=== PATIENT | female | born 1940 | race American Indian/Alaskan Native ===

== ENCOUNTER 2016-10-31 13:09 | Inpatient (IN) | payer MEDICARE, MEDICAID ==
[~2016-10-31] VITALS: Ht 152.4 cm; Wt 78.7 kg
[~2016-10-31 13:09] MED LIST: CALC-126 PO; FURO80TA3 PO; GABA300C10 PO; INSU100C SQ; INSU100V8 SQ; ISOS30TA19 PO; LACT1CAP4 PO; LEVO75TA PO; PANT40TA5 PO; RIVA20TA PO; ROSU20TA PO; SPIR25TA3 PO; multivit; multivitamin PO
[2016-10-31 13:54] VITALS: BP 111/71
[2016-10-31] MEDS ORDERED: PLEASE ENTER HEIGHT AND WEIGHT MC SCH (15:00)
[2016-10-31] MEDS ORDERED: DIPHENHYDRAMINE 25 MG CAPSULE PO PRN ×2 (16:00)
[2016-10-31] MEDS: FUROSEMIDE 40 MG/4 ML IV SCH (16:50)
[2016-10-31] MEDS: METOLAZONE 5 MG TABLET PO SCH (16:50)
[2016-10-31] MEDS: CARVEDILOL 3.125 MG TABLET PO SCH (16:51)
[2016-10-31] MEDS: INSULIN ASPART 100 UNITS/ML, PEN SQ-INSULIN SCH (16:51)
[2016-10-31 20:35] VITALS: BP 93/59
[2016-10-31] MEDS: POTASSIUM CHLORIDE 10 MEQ TABLET.ER PO SCH (20:36)
[2016-10-31] MEDS: GABAPENTIN 300 MG CAPSULE PO SCH (20:36)
[2016-10-31] MEDS: SODIUM CHLORIDE FLUSH 10ML SYR IVF SCH (23:53)
[2016-11-01 02:30] VITALS: BP 98/60
[2016-11-01] MEDS: LEVOTHYROXINE 125 MCG TABLET PO SCH (06:13)
[2016-11-01] MEDS: CARVEDILOL 3.125 MG TABLET PO SCH ×2 (06:13→17:29)
[2016-11-01 08:12] VITALS: BP 100/64
[2016-11-01] MEDS: ATORVASTATIN 20 MG TABLET PO SCH (09:35)
[2016-11-01] MEDS: RIVAROXABAN 15 MG TABLET PO SCH (09:35)
[2016-11-01] MEDS: ISOSORBIDE MONONITRATE ER 30 MG TABLET PO SCH (09:35)
[2016-11-01] MEDS: METOLAZONE 5 MG TABLET PO SCH (09:35)
[2016-11-01] MEDS: GABAPENTIN 300 MG CAPSULE PO SCH ×2 (09:36→20:53)
[2016-11-01] MEDS: POTASSIUM CHLORIDE 10 MEQ TABLET.ER PO SCH ×2 (09:36→20:53)
[2016-11-01] MEDS: FUROSEMIDE 40 MG/4 ML IV SCH (09:36)
[2016-11-01] MEDS: PANTOPROZOLE 40MG TABLET PO SCH (09:36)
[2016-11-01] MEDS: LISINOPRIL 5 MG TABLET PO SCH (09:37)
[2016-11-01] MEDS: INSULIN ASPART 100 UNITS/ML, PEN SQ-INSULIN SCH ×3 (09:37→17:29)
[2016-11-01] MEDS: INSULIN DETEMIR 100 UNITS/ML, PEN SQ-INSULIN SCH (09:38)
[2016-11-01] MEDS: SODIUM CHLORIDE FLUSH 10ML SYR IVF SCH ×2 (09:40→20:53)
[2016-11-01 10:31] LABS: BLOOD UREA NITROGEN 58 mg/dL (7-18)
[2016-11-01 12:07] VITALS: BP 93/54
[2016-11-01] MEDS: HYDROcodone/APAP 5/325 TABLET PO PRN ×2 (12:09→22:18)
[2016-11-01 13:51] VITALS: BP 96/57
[2016-11-01 20:15] VITALS: BP 101/62
[2016-11-01] MEDS ORDERED: FUROSEMIDE 40 MG/4 ML IV SCH (21:00)
[2016-11-02 02:54] VITALS: BP 96/60
[2016-11-02 05:11] LABS: BLOOD UREA NITROGEN 59 mg/dL (7-18)
[2016-11-02] MEDS: CARVEDILOL 3.125 MG TABLET PO SCH ×2 (06:01→17:28)
[2016-11-02] MEDS: LEVOTHYROXINE 125 MCG TABLET PO SCH (06:02)
[2016-11-02 08:00] VITALS: BP 96/60
[2016-11-02] MEDS: INSULIN ASPART 100 UNITS/ML, PEN SQ-INSULIN SCH ×4 (09:20→22:17)
[2016-11-02] MEDS: POTASSIUM CHLORIDE 10 MEQ TABLET.ER PO SCH ×2 (09:21→22:17)
[2016-11-02] MEDS: GABAPENTIN 300 MG CAPSULE PO SCH ×2 (09:21→21:00)
[2016-11-02] MEDS: ATORVASTATIN 20 MG TABLET PO SCH (09:21)
[2016-11-02] MEDS: RIVAROXABAN 15 MG TABLET PO SCH (09:21)
[2016-11-02] MEDS: ISOSORBIDE MONONITRATE ER 30 MG TABLET PO SCH (09:22)
[2016-11-02] MEDS: PANTOPROZOLE 40MG TABLET PO SCH (09:22)
[2016-11-02] MEDS: LISINOPRIL 5 MG TABLET PO SCH (09:22)
[2016-11-02] MEDS: INSULIN DETEMIR 100 UNITS/ML, PEN SQ-INSULIN SCH (09:26)
[2016-11-02] MEDS: FUROSEMIDE 40 MG/4 ML IV SCH (09:27)
[2016-11-02] MEDS: METOLAZONE 5 MG TABLET PO SCH (09:27)
[2016-11-02] MEDS: SODIUM CHLORIDE FLUSH 10ML SYR IVF SCH ×2 (09:28→22:17)
[2016-11-02] MEDS ORDERED: INSULIN ASPART 100 UNITS/ML, PEN SQ-INSULIN ONE (14:00)
[2016-11-02] MEDS ORDERED: FUROSEMIDE 40 MG/4 ML IV SCH (15:00)
[2016-11-02 15:30] VITALS: BP 100/68
[2016-11-02 20:15] VITALS: BP 91/55
[2016-11-02 22:23] VITALS: BP 90/58
[2016-11-03 02:10] VITALS: BP 82/48
[2016-11-03 02:30] VITALS: BP 93/57
[2016-11-03] MEDS: LEVOTHYROXINE 125 MCG TABLET PO SCH (05:46)
[2016-11-03 06:23] LABS: BLOOD UREA NITROGEN 58 mg/dL (7-18)
[2016-11-03 07:50] VITALS: BP 104/69
[2016-11-03] MEDS: PANTOPROZOLE 40MG TABLET PO SCH (07:53)
[2016-11-03] MEDS: CARVEDILOL 3.125 MG TABLET PO SCH ×2 (07:53→17:45)
[2016-11-03] MEDS: GABAPENTIN 300 MG CAPSULE PO SCH ×2 (08:40→20:55)
[2016-11-03] MEDS: RIVAROXABAN 15 MG TABLET PO SCH (08:40)
[2016-11-03] MEDS: METOLAZONE 5 MG TABLET PO SCH (08:40)
[2016-11-03] MEDS: INSULIN ASPART 100 UNITS/ML, PEN SQ-INSULIN SCH ×4 (08:40→20:57)
[2016-11-03] MEDS: INSULIN DETEMIR 100 UNITS/ML, PEN SQ-INSULIN SCH (08:41)
[2016-11-03] MEDS: ATORVASTATIN 20 MG TABLET PO SCH (09:46)
[2016-11-03] MEDS: POTASSIUM CHLORIDE 10 MEQ TABLET.ER PO SCH ×2 (09:46→20:55)
[2016-11-03] MEDS: TORSEMIDE 20 MG TABLET PO SCH ×2 (09:46→17:44)
[2016-11-03] MEDS: SODIUM CHLORIDE FLUSH 10ML SYR IVF SCH ×2 (09:46→20:55)
[2016-11-03 13:04] VITALS: BP 98/65
[2016-11-03] MEDS: ISOSORBIDE MONONITRATE ER 30 MG TABLET PO SCH (13:06)
[2016-11-03] MEDS: LISINOPRIL 5 MG TABLET PO SCH (13:06)
[2016-11-03 19:04] VITALS: BP 89/46
[2016-11-03 20:45] VITALS: BP 100/63
[2016-11-04 03:20] VITALS: BP 95/62
[2016-11-04 06:20] VITALS: BP 101/64
[2016-11-04] MEDS: LEVOTHYROXINE 125 MCG TABLET PO SCH (06:29)
[2016-11-04] MEDS: CARVEDILOL 3.125 MG TABLET PO SCH ×2 (06:30→17:30)
[2016-11-04] MEDS: PANTOPROZOLE 40MG TABLET PO SCH (08:17)
[2016-11-04] MEDS: METOLAZONE 5 MG TABLET PO SCH (08:18)
[2016-11-04] MEDS: POTASSIUM CHLORIDE 10 MEQ TABLET.ER PO SCH ×2 (09:32→21:39)
[2016-11-04] MEDS: GABAPENTIN 300 MG CAPSULE PO SCH ×2 (09:32→21:39)
[2016-11-04] MEDS: TORSEMIDE 20 MG TABLET PO SCH ×2 (09:32→17:30)
[2016-11-04] MEDS: RIVAROXABAN 15 MG TABLET PO SCH (09:32)
[2016-11-04 09:33] LABS: BLOOD UREA NITROGEN 61 mg/dL (7-18)
[2016-11-04] MEDS: SODIUM CHLORIDE FLUSH 10ML SYR IVF SCH ×2 (09:33→21:39)
[2016-11-04] MEDS: INSULIN ASPART 100 UNITS/ML, PEN SQ-INSULIN SCH ×4 (09:33→21:39)
[2016-11-04] MEDS: INSULIN DETEMIR 100 UNITS/ML, PEN SQ-INSULIN SCH (09:33)
[2016-11-04] MEDS: LISINOPRIL 5 MG TABLET PO SCH (10:42)
[2016-11-04 10:43] VITALS: BP 107/62
[2016-11-04] MEDS: ISOSORBIDE MONONITRATE ER 30 MG TABLET PO SCH (10:43)
[2016-11-04 15:00] VITALS: BP 120/71
[2016-11-04 20:00] VITALS: BP 112/65
[2016-11-04] MEDS: ATORVASTATIN 20 MG TABLET PO SCH (21:39)
[2016-11-04] MEDS: HYDROcodone/APAP 5/325 TABLET PO PRN (23:23)
[2016-11-05 01:14] VITALS: BP 100/62
[2016-11-05] MEDS: LEVOTHYROXINE 125 MCG TABLET PO SCH (05:46)
[2016-11-05] MEDS: CARVEDILOL 3.125 MG TABLET PO SCH (05:46)
[2016-11-05 06:50] LABS: BLOOD UREA NITROGEN 67 mg/dL (7-18)
[2016-11-05] MEDS: INSULIN ASPART 100 UNITS/ML, PEN SQ-INSULIN SCH (07:00)
[2016-11-05] MEDS: METOLAZONE 5 MG TABLET PO SCH (07:20)
[2016-11-05] MEDS: PANTOPROZOLE 40MG TABLET PO SCH (07:20)
[2016-11-05 07:22] VITALS: BP 103/68
[2016-11-05] MEDS ORDERED: TORS20TA PO (08:05)
[2016-11-05] MEDS ORDERED: LEVO125T PO (08:05)
[2016-11-05] MEDS ORDERED: LISI5TAB7 PO (08:05)
[2016-11-05] MEDS ORDERED: RIVA15TA PO (08:05)
[2016-11-05] MEDS ORDERED: POTA10TA5 PO (08:05)
[2016-11-05] MEDS ORDERED: CARV3.1212 PO (08:05)
[2016-11-05] MEDS ORDERED: METO5TAB5 PO (08:05)
[2016-11-05] MEDS: POTASSIUM CHLORIDE 10 MEQ TABLET.ER PO SCH (08:21)
[2016-11-05] MEDS: LISINOPRIL 5 MG TABLET PO SCH (08:21)
[2016-11-05] MEDS: ATORVASTATIN 20 MG TABLET PO SCH (08:21)
[2016-11-05] MEDS: ISOSORBIDE MONONITRATE ER 30 MG TABLET PO SCH (08:21)
[2016-11-05] MEDS: TORSEMIDE 20 MG TABLET PO SCH (08:21)
[2016-11-05] MEDS: RIVAROXABAN 15 MG TABLET PO SCH (08:21)
[2016-11-05] MEDS: SODIUM CHLORIDE FLUSH 10ML SYR IVF SCH (08:21)
[2016-11-05] MEDS: GABAPENTIN 300 MG CAPSULE PO SCH (08:21)
[2016-11-05] MEDS: INSULIN DETEMIR 100 UNITS/ML, PEN SQ-INSULIN SCH (08:22)
== END 2016-11-05 10:54 | disposition home or self-care (01) | DRG 308 ==
LOC: 5SO 13:09
PROVIDERS: ADMIT Internal Medicine Cardiovascular Disease; ATTEND Internal Medicine Cardiovascular Disease
DX: I48.2 Chronic atrial fibrillation (principal); I50.43 Acute on chronic combined systolic (congestive) and diastolic (congestive) heart failure; D68.69 Other thrombophilia; I48.92 Unspecified atrial flutter; I25.5 Ischemic cardiomyopathy; Z95.810 Presence of automatic (implantable) cardiac defibrillator; E11.21 Type 2 diabetes mellitus with diabetic nephropathy; N18.9 Chronic kidney disease, unspecified; E11.22 Type 2 diabetes mellitus with diabetic chronic kidney disease; I25.10 Atherosclerotic heart disease of native coronary artery without angina pectoris; E11.40 Type 2 diabetes mellitus with diabetic neuropathy, unspecified; E11.610 Type 2 diabetes mellitus with diabetic neuropathic arthropathy; E11.621 Type 2 diabetes mellitus with foot ulcer; I27.2 Other secondary pulmonary hypertension; I34.0 Nonrheumatic mitral (valve) insufficiency; E11.51 Type 2 diabetes mellitus with diabetic peripheral angiopathy without gangrene; L97.519 Non-pressure chronic ulcer of other part of right foot with unspecified severity; Z80.3 Family history of malignant neoplasm of breast; Z82.3 Family history of stroke; Z83.3 Family history of diabetes mellitus; Z87.891 Personal history of nicotine dependence; Z95.1 Presence of aortocoronary bypass graft
CPT/HCPCS: 36415; 71010; 80048; 82962; 83036; 83880; 85025; C8929; J1815; J1940

== ENCOUNTER 2017-10-20 18:39 | Inpatient (IN) | payer MEDICARE, MEDICAID ==
[~2017-10-20] VITALS: Ht 152.4 cm; Wt 78.4 kg
[~2017-10-20 18:39] MED LIST changes: +CARV3.1212 PO; -ISOS30TA19 PO; +ISOS30TA21 PO; +LEVO125T PO; +LISI5TAB7 PO; +METO5TAB5 PO; +POTA10TA5 PO; +RIVA15TA PO; +TORS20TA PO
[2017-10-20] MEDS ORDERED: SODIUM CHLORIDE FLUSH 10ML SYR IVF ONE (19:00)
[2017-10-20 19:33] LABS: BASOPHILS # (AUTO) 0.04 x10^3/uL (0-0.1); BASOPHILS % (AUTO) 1 % (0-1); EOSINOPHILS # (AUTO) 0.03 x10^3/uL (0-0.4); EOSINOPHILS % (AUTO) 1 % (1-7); LYMPHOCYTES # (AUTO) 1.03 x10^3/uL (1-3.4); LYMPHOCYTES % (AUTO) 20 % (22-44); MD NO; MEAN CORPUSCULAR HEMOGLOBIN 31.6 pg (27.0-34.8); MEAN CORPUSCULAR HGB CONC 32.4 g/dL (32.4-35.8); MEAN CORPUSCULAR VOLUME 97.4 fL (80-100); MEAN PLATELET VOLUME 7.1 fL (7.4-10.4); MONOCYTES # (AUTO) 0.49 x10^3/uL (0.2-0.8); MONOCYTES % (AUTO) 9 % (2-9); NEUTROPHILS % (AUTO) 70 % (42-75); PLATELET COUNT 235 x10^3/uL (130-400); RED BLOOD COUNT 4.76 x10^6/uL (3.82-5.3); RED CELL DISTRIBUTION WIDTH 16.3 % (9.6-15.2)
[2017-10-20 19:45] LABS: ALANINE AMINOTRANSFERASE 12 U/L (12-78); ALBUMIN 1.7 g/dL (3.4-5.0); ANION GAP 6 mmol/L (5-15); CALCIUM 7.5 mg/dL (8.5-10.1); CHLORIDE 99 mmol/L (98-107); CREATININE 1.41 mg/dL (0.55-1.02)
[2017-10-20 19:50] LABS: ALKALINE PHOSPHATASE 72 U/L (45-117); BILIRUBIN,TOTAL 0.6 mg/dL (0.2-1.0); TOTAL PROTEIN 4.7 g/dL (6.4-8.2); TROPONIN I 0.036 ng/mL (0.000-0.045)
[2017-10-20] MEDS ORDERED: FUROSEMIDE 100 MG/10 ML IV ONE (20:00)
[2017-10-20] MEDS ORDERED: FURO80TA77 PO (20:20)
[2017-10-20] MEDS ORDERED: ESOM40CA PO (20:20)
[2017-10-20] MEDS ORDERED: IRON PO (20:20)
[2017-10-20] MEDS ORDERED: ISOSORBIDE MONONITRATE PO (20:20)
[2017-10-20] MEDS ORDERED: ROSU10TA PO (20:20)
[2017-10-20] MEDS ORDERED: LACTOBACILLUS CHEW TABLET PO SCH (21:30)
[2017-10-20] MEDS ORDERED: GABAPENTIN 300 MG CAPSULE PO SCH (21:30)
[2017-10-20] MEDS ORDERED: ATORVASTATIN 40 MG TABLET PO SCH (21:30)
[2017-10-20] MEDS ORDERED: ISOSORBIDE DINITRATE 30 MG TABLET PO SCH (21:30)
[2017-10-20] MEDS ORDERED: POLYETHYLENE GLYCOL 17 GM PACKET PO PRN (22:00)
[2017-10-20] MEDS ORDERED: BISACODYL 10 MG SUPP PR PRN (22:00)
[2017-10-20] MEDS ORDERED: ONDANSETRON 2MG/ML, 2ML IVPush PRN (22:00)
[2017-10-20 22:18] VITALS: BP 106/70
[2017-10-20] MEDS ORDERED: ISOSORBIDE MC SCH ×2 (22:30)
[2017-10-21 00:27] LABS: MICROSCOPIC NOT IND
[2017-10-21] MEDS ORDERED: ROSU10TA PO (00:27)
[2017-10-21] MEDS ORDERED: ESOM40SU PO (00:27)
[2017-10-21] MEDS ORDERED: ISOSORBIDE MONONITRATE PO (00:27)
[2017-10-21] MEDS ORDERED: GABA-826 PO (00:27)
[2017-10-21 00:31] LABS: CULTURE INDICATED? NO
[2017-10-21] MEDS: SODIUM CHLORIDE FLUSH 10ML SYR IVF SCH ×3 (01:41→22:07)
[2017-10-21] MEDS: GABAPENTIN 300 MG CAPSULE PO SCH ×3 (01:42→22:08)
[2017-10-21] MEDS: POTASSIUM CHLORIDE 20 MEQ TAB.ER.PRT PO SCH ×3 (01:42→17:02)
[2017-10-21] MEDS: INSULIN LISPRO 100 UNITS/ML, PEN SQ-INSULIN SCH ×5 (01:42→22:08)
[2017-10-21] MEDS: ATORVASTATIN 20 MG TABLET PO SCH ×2 (01:42→22:08)
[2017-10-21 03:10] VITALS: BP 114/72
[2017-10-21 05:18] LABS: BASOPHILS # (AUTO) 0.05 x10^3/uL (0-0.1); BASOPHILS % (AUTO) 1 % (0-1); EOSINOPHILS # (AUTO) 0.06 x10^3/uL (0-0.4); EOSINOPHILS % (AUTO) 1 % (1-7); LYMPHOCYTES # (AUTO) 1.11 x10^3/uL (1-3.4); LYMPHOCYTES % (AUTO) 20 % (22-44); MD NO; MEAN CORPUSCULAR HEMOGLOBIN 31.9 pg (27.0-34.8); MEAN CORPUSCULAR HGB CONC 32.9 g/dL (32.4-35.8); MEAN CORPUSCULAR VOLUME 97.1 fL (80-100); MEAN PLATELET VOLUME 7.2 fL (7.4-10.4); MONOCYTES # (AUTO) 0.47 x10^3/uL (0.2-0.8); MONOCYTES % (AUTO) 9 % (2-9); NEUTROPHILS # (AUTO) 3.86 x10^3/uL (1.8-6.8); NEUTROPHILS % (AUTO) 70 % (42-75); PLATELET COUNT 225 x10^3/uL (130-400); RED BLOOD COUNT 4.65 x10^6/uL (3.82-5.3); RED CELL DISTRIBUTION WIDTH 16.3 % (9.6-15.2)
[2017-10-21 05:27] LABS: CHLORIDE 101 mmol/L (98-107)
[2017-10-21 05:35] LABS: ALANINE AMINOTRANSFERASE 15 U/L (12-78); ALBUMIN 1.6 g/dL (3.4-5.0); ALKALINE PHOSPHATASE 71 U/L (45-117); ANION GAP 3 mmol/L (5-15); BILIRUBIN,TOTAL 0.6 mg/dL (0.2-1.0); CALCIUM 7.5 mg/dL (8.5-10.1); CREATININE 1.58 mg/dL (0.55-1.02); TOTAL PROTEIN 4.7 g/dL (6.4-8.2); TROPONIN I 0.038 ng/mL (0.000-0.045)
[2017-10-21] MEDS: CARVEDILOL 3.125 MG TABLET PO SCH ×2 (06:04→18:00)
[2017-10-21] MEDS: LEVOTHYROXINE 125 MCG TABLET PO SCH (06:04)
[2017-10-21] MEDS ORDERED: TORSEMIDE 20 MG TABLET PO SCH (07:30)
[2017-10-21] MEDS ORDERED: METOLAZONE 5 MG TABLET PO SCH (07:30)
[2017-10-21] MEDS: METOLAZONE 5 MG TABLET PO SCH (07:35)
[2017-10-21] MEDS: FUROSEMIDE 40 MG/4 ML IV SCH ×2 (08:07→16:55)
[2017-10-21 08:18] VITALS: BP 118/76
[2017-10-21] MEDS ORDERED: LISINOPRIL 5 MG TABLET PO SCH (09:00)
[2017-10-21] MEDS ORDERED: CALCIUM/VITAMIN D3 250-125 TABLET PO SCH (09:00)
[2017-10-21] MEDS: SENNA/DOCUSATE TABLET PO SCH (09:00)
[2017-10-21] MEDS ORDERED: PANTOPROZOLE 40MG TABLET PO SCH (09:00)
[2017-10-21] MEDS: ISOSORBIDE MONONITRATE ER 30 MG TABLET PO SCH (09:26)
[2017-10-21] MEDS: FERROUS SULFATE 325 MG TABLET PO SCH ×2 (09:26→22:08)
[2017-10-21] MEDS: MULTIVITAMINS/MINERALS TABLET PO SCH (09:27)
[2017-10-21] MEDS: RIVAROXABAN 15 MG TABLET PO SCH (09:28)
[2017-10-21] MEDS: PANTOPROZOLE 40MG TABLET PO SCH (09:28)
[2017-10-21] MEDS: INSULIN GLARGINE 100 UNITS/ML, PEN SQ-INSULIN SCH (10:12)
[2017-10-21 14:07] VITALS: BP 123/70
[2017-10-21 19:58] VITALS: BP 115/71
[2017-10-22 00:58] VITALS: BP 97/57
[2017-10-22 05:46] LABS: BASOPHILS # (AUTO) 0.02 x10^3/uL (0-0.1); BASOPHILS % (AUTO) 0 % (0-1); EOSINOPHILS % (AUTO) 2 % (1-7); LYMPHOCYTES # (AUTO) 0.87 x10^3/uL (1-3.4); LYMPHOCYTES % (AUTO) 16 % (22-44); MD NO; MEAN CORPUSCULAR HEMOGLOBIN 31.3 pg (27.0-34.8); MEAN CORPUSCULAR HGB CONC 32.4 g/dL (32.4-35.8); MEAN CORPUSCULAR VOLUME 96.6 fL (80-100); MONOCYTES # (AUTO) 0.38 x10^3/uL (0.2-0.8); MONOCYTES % (AUTO) 7 % (2-9); NEUTROPHILS # (AUTO) 4.15 x10^3/uL (1.8-6.8); NEUTROPHILS % (AUTO) 75 % (42-75); PLATELET COUNT 214 x10^3/uL (130-400); RED BLOOD COUNT 4.53 x10^6/uL (3.82-5.3); RED CELL DISTRIBUTION WIDTH 16.5 % (9.6-15.2)
[2017-10-22 05:53] LABS: ANION GAP 6 mmol/L (5-15); CALCIUM 7.8 mg/dL (8.5-10.1); CHLORIDE 102 mmol/L (98-107)
[2017-10-22 05:55] LABS: CREATININE 1.49 mg/dL (0.55-1.02)
[2017-10-22] MEDS: CARVEDILOL 3.125 MG TABLET PO SCH ×2 (06:06→16:59)
[2017-10-22] MEDS: LEVOTHYROXINE 125 MCG TABLET PO SCH (06:06)
[2017-10-22 06:39] VITALS: BP 106/66
[2017-10-22] MEDS: INSULIN LISPRO 100 UNITS/ML, PEN SQ-INSULIN SCH ×4 (07:00→20:19)
[2017-10-22] MEDS: PANTOPROZOLE 40MG TABLET PO SCH (08:02)
[2017-10-22] MEDS: RIVAROXABAN 15 MG TABLET PO SCH (08:02)
[2017-10-22] MEDS: ISOSORBIDE MONONITRATE ER 30 MG TABLET PO SCH (08:02)
[2017-10-22] MEDS: GABAPENTIN 300 MG CAPSULE PO SCH ×2 (08:02→20:17)
[2017-10-22] MEDS: POTASSIUM CHLORIDE 20 MEQ TAB.ER.PRT PO SCH ×2 (08:02→16:55)
[2017-10-22] MEDS: FERROUS SULFATE 325 MG TABLET PO SCH ×2 (08:02→20:17)
[2017-10-22] MEDS: METOLAZONE 5 MG TABLET PO SCH (08:02)
[2017-10-22] MEDS: MULTIVITAMINS/MINERALS TABLET PO SCH (08:02)
[2017-10-22] MEDS: SENNA/DOCUSATE TABLET PO SCH ×2 (08:03→12:05)
[2017-10-22] MEDS: SODIUM CHLORIDE FLUSH 10ML SYR IVF SCH ×2 (08:03→20:18)
[2017-10-22] MEDS: INSULIN GLARGINE 100 UNITS/ML, PEN SQ-INSULIN SCH (09:00)
[2017-10-22] MEDS: FUROSEMIDE 40 MG/4 ML IV SCH ×2 (09:00→16:55)
[2017-10-22] MEDS: SPIRONOLACTONE 25 MG TABLET PO SCH ×2 (12:04→20:17)
[2017-10-22 12:50] VITALS: BP 114/69
[2017-10-22 16:59] VITALS: BP 111/74
[2017-10-22 19:22] VITALS: BP 99/38
[2017-10-22] MEDS: ATORVASTATIN 20 MG TABLET PO SCH (20:17)
[2017-10-23 01:07] VITALS: BP 104/68
[2017-10-23 05:29] LABS: CHLORIDE 102 mmol/L (98-107)
[2017-10-23] MEDS: CARVEDILOL 3.125 MG TABLET PO SCH ×2 (05:37→17:29)
[2017-10-23] MEDS: LEVOTHYROXINE 125 MCG TABLET PO SCH (05:37)
[2017-10-23 05:40] LABS: ANION GAP 5 mmol/L (5-15); CALCIUM 7.2 mg/dL (8.5-10.1); CREATININE 1.26 mg/dL (0.55-1.02)
[2017-10-23 06:59] VITALS: BP 103/65
[2017-10-23] MEDS: INSULIN LISPRO 100 UNITS/ML, PEN SQ-INSULIN SCH ×4 (07:00→20:08)
[2017-10-23] MEDS: GABAPENTIN 300 MG CAPSULE PO SCH ×2 (08:55→20:08)
[2017-10-23] MEDS: INSULIN GLARGINE 100 UNITS/ML, PEN SQ-INSULIN SCH (08:55)
[2017-10-23] MEDS: POTASSIUM CHLORIDE 20 MEQ TAB.ER.PRT PO SCH ×2 (08:55→17:28)
[2017-10-23] MEDS: SPIRONOLACTONE 25 MG TABLET PO SCH ×2 (08:56→20:08)
[2017-10-23] MEDS: RIVAROXABAN 15 MG TABLET PO SCH (08:56)
[2017-10-23] MEDS: PANTOPROZOLE 40MG TABLET PO SCH (08:56)
[2017-10-23] MEDS: ISOSORBIDE MONONITRATE ER 30 MG TABLET PO SCH (08:56)
[2017-10-23] MEDS: FERROUS SULFATE 325 MG TABLET PO SCH ×2 (08:56→20:08)
[2017-10-23] MEDS: SENNA/DOCUSATE TABLET PO SCH (08:56)
[2017-10-23] MEDS: FUROSEMIDE 40 MG/4 ML IV SCH ×2 (08:56→17:29)
[2017-10-23] MEDS: SODIUM CHLORIDE FLUSH 10ML SYR IVF SCH ×2 (08:56→20:08)
[2017-10-23] MEDS: MULTIVITAMINS/MINERALS TABLET PO SCH (08:56)
[2017-10-23 12:41] VITALS: BP 118/77
[2017-10-23 16:28] LABS: HEMOGLOBIN A1C 7.3 % (4.2-6.3)
[2017-10-23 17:27] VITALS: BP 103/67
[2017-10-23 19:54] VITALS: BP 96/58
[2017-10-23] MEDS: ATORVASTATIN 20 MG TABLET PO SCH (20:07)
[2017-10-24 01:46] VITALS: BP 115/84
[2017-10-24 03:32] VITALS: BP 121/50
[2017-10-24 05:26] LABS: BASOPHILS # (AUTO) 0.03 x10^3/uL (0-0.1); BASOPHILS % (AUTO) 1 % (0-1); EOSINOPHILS # (AUTO) 0.09 x10^3/uL (0-0.4); EOSINOPHILS % (AUTO) 2 % (1-7); LYMPHOCYTES # (AUTO) 0.85 x10^3/uL (1-3.4); LYMPHOCYTES % (AUTO) 15 % (22-44); MD NO; MEAN CORPUSCULAR HEMOGLOBIN 31.1 pg (27.0-34.8); MEAN CORPUSCULAR VOLUME 97.2 fL (80-100); MEAN PLATELET VOLUME 6.9 fL (7.4-10.4); MONOCYTES # (AUTO) 0.42 x10^3/uL (0.2-0.8); MONOCYTES % (AUTO) 8 % (2-9); NEUTROPHILS # (AUTO) 4.15 x10^3/uL (1.8-6.8); NEUTROPHILS % (AUTO) 75 % (42-75); PLATELET COUNT 209 x10^3/uL (130-400); RED BLOOD COUNT 4.67 x10^6/uL (3.82-5.3); RED CELL DISTRIBUTION WIDTH 16.5 % (9.6-15.2)
[2017-10-24] MEDS: LEVOTHYROXINE 125 MCG TABLET PO SCH (05:32)
[2017-10-24] MEDS: CARVEDILOL 3.125 MG TABLET PO SCH ×2 (05:32→17:01)
[2017-10-24 05:34] LABS: CALCIUM 7.4 mg/dL (8.5-10.1); CHLORIDE 101 mmol/L (98-107)
[2017-10-24 05:37] LABS: ANION GAP 5 mmol/L (5-15); CREATININE 1.27 mg/dL (0.55-1.02)
[2017-10-24] MEDS: INSULIN LISPRO 100 UNITS/ML, PEN SQ-INSULIN SCH ×5 (07:00→20:58)
[2017-10-24 08:07] VITALS: BP 125/79
[2017-10-24] MEDS: POTASSIUM CHLORIDE 20 MEQ TAB.ER.PRT PO SCH ×2 (08:32→17:00)
[2017-10-24] MEDS: FUROSEMIDE 40 MG/4 ML IV SCH ×2 (08:32→17:00)
[2017-10-24] MEDS: SPIRONOLACTONE 25 MG TABLET PO SCH ×2 (08:32→20:57)
[2017-10-24] MEDS: RIVAROXABAN 15 MG TABLET PO SCH (08:32)
[2017-10-24] MEDS: GABAPENTIN 300 MG CAPSULE PO SCH ×2 (08:32→20:57)
[2017-10-24] MEDS: PANTOPROZOLE 40MG TABLET PO SCH (08:32)
[2017-10-24] MEDS: FERROUS SULFATE 325 MG TABLET PO SCH ×4 (08:32→21:00)
[2017-10-24] MEDS: SODIUM CHLORIDE FLUSH 10ML SYR IVF SCH ×2 (08:32→20:57)
[2017-10-24] MEDS: SENNA/DOCUSATE TABLET PO SCH (08:32)
[2017-10-24] MEDS: ISOSORBIDE MONONITRATE ER 30 MG TABLET PO SCH (08:32)
[2017-10-24] MEDS: MULTIVITAMINS/MINERALS TABLET PO SCH (08:32)
[2017-10-24] MEDS: INSULIN GLARGINE 100 UNITS/ML, PEN SQ-INSULIN SCH (08:33)
[2017-10-24 14:09] VITALS: BP 129/83
[2017-10-24 16:59] VITALS: BP 116/74
[2017-10-24 19:05] VITALS: BP 100/62
[2017-10-24] MEDS: ATORVASTATIN 20 MG TABLET PO SCH (20:57)
[2017-10-25 00:59] VITALS: BP 105/65
[2017-10-25 05:37] LABS: ALANINE AMINOTRANSFERASE 14 U/L (12-78); ALBUMIN 1.7 g/dL (3.4-5.0); ANION GAP 4 mmol/L (5-15); CALCIUM 7.7 mg/dL (8.5-10.1); CHLORIDE 99 mmol/L (98-107); CREATININE 1.46 mg/dL (0.55-1.02)
[2017-10-25 05:39] LABS: ALKALINE PHOSPHATASE 57 U/L (45-117); BILIRUBIN,TOTAL 0.6 mg/dL (0.2-1.0); TOTAL PROTEIN 4.7 g/dL (6.4-8.2)
[2017-10-25] MEDS: LEVOTHYROXINE 125 MCG TABLET PO SCH (05:54)
[2017-10-25] MEDS: CARVEDILOL 3.125 MG TABLET PO SCH ×2 (05:54→19:27)
[2017-10-25] MEDS: INSULIN LISPRO 100 UNITS/ML, PEN SQ-INSULIN SCH ×4 (07:00→20:04)
[2017-10-25 09:18] VITALS: BP 117/75
[2017-10-25] MEDS: ALBUMIN HUMAN 25% 100 ML IV SCH ×3 (10:35→22:46)
[2017-10-25] MEDS: SENNA/DOCUSATE TABLET PO SCH (10:36)
[2017-10-25] MEDS: POTASSIUM CHLORIDE 20 MEQ TAB.ER.PRT PO SCH ×2 (10:37→16:21)
[2017-10-25] MEDS: PANTOPROZOLE 40MG TABLET PO SCH (10:37)
[2017-10-25] MEDS: GABAPENTIN 300 MG CAPSULE PO SCH ×2 (10:37→20:03)
[2017-10-25] MEDS: RIVAROXABAN 15 MG TABLET PO SCH (10:38)
[2017-10-25] MEDS: ISOSORBIDE MONONITRATE ER 30 MG TABLET PO SCH (10:38)
[2017-10-25] MEDS: MULTIVITAMINS/MINERALS TABLET PO SCH (10:38)
[2017-10-25] MEDS: SPIRONOLACTONE 25 MG TABLET PO SCH ×2 (10:38→20:03)
[2017-10-25] MEDS: FUROSEMIDE 40 MG/4 ML IV SCH (10:38)
[2017-10-25] MEDS: FERROUS SULFATE 325 MG TABLET PO SCH ×2 (10:39→20:03)
[2017-10-25] MEDS: INSULIN GLARGINE 100 UNITS/ML, PEN SQ-INSULIN SCH (10:49)
[2017-10-25] MEDS: SODIUM CHLORIDE FLUSH 10ML SYR IVF SCH ×2 (11:05→20:03)
[2017-10-25] MEDS: BUMETANIDE 0.25 MG/ML, 4ML IV SCH ×3 (12:21→22:30)
[2017-10-25 16:52] VITALS: BP 105/56
[2017-10-25] MEDS: ATORVASTATIN 20 MG TABLET PO SCH (20:03)
[2017-10-25 20:04] VITALS: BP 101/61
[2017-10-26 03:17] VITALS: BP 93/63
[2017-10-26] MEDS: ALBUMIN HUMAN 25% 100 ML IV SCH (04:36)
[2017-10-26 05:58] LABS: ANION GAP 5 mmol/L (5-15); CALCIUM 7.8 mg/dL (8.5-10.1); CHLORIDE 99 mmol/L (98-107); CREATININE 1.59 mg/dL (0.55-1.02)
[2017-10-26] MEDS: BUMETANIDE 0.25 MG/ML, 4ML IV SCH (06:12)
[2017-10-26 06:13] VITALS: BP 112/78
[2017-10-26] MEDS: LEVOTHYROXINE 125 MCG TABLET PO SCH (06:14)
[2017-10-26] MEDS: CARVEDILOL 3.125 MG TABLET PO SCH ×2 (06:15→17:54)
[2017-10-26] MEDS: INSULIN LISPRO 100 UNITS/ML, PEN SQ-INSULIN SCH ×4 (07:00→20:51)
[2017-10-26 07:34] VITALS: BP 104/67
[2017-10-26] MEDS: MULTIVITAMINS/MINERALS TABLET PO SCH (08:56)
[2017-10-26] MEDS: PANTOPROZOLE 40MG TABLET PO SCH (08:57)
[2017-10-26] MEDS: RIVAROXABAN 15 MG TABLET PO SCH (08:57)
[2017-10-26] MEDS: POTASSIUM CHLORIDE 20 MEQ TAB.ER.PRT PO SCH ×2 (08:57→17:53)
[2017-10-26] MEDS: GABAPENTIN 300 MG CAPSULE PO SCH ×2 (08:57→20:51)
[2017-10-26] MEDS: FERROUS SULFATE 325 MG TABLET PO SCH ×2 (08:57→20:51)
[2017-10-26] MEDS: SPIRONOLACTONE 25 MG TABLET PO SCH (08:57)
[2017-10-26] MEDS: SODIUM CHLORIDE FLUSH 10ML SYR IVF SCH ×2 (08:57→20:51)
[2017-10-26] MEDS: SENNA/DOCUSATE TABLET PO SCH (08:58)
[2017-10-26] MEDS: INSULIN GLARGINE 100 UNITS/ML, PEN SQ-INSULIN SCH (08:58)
[2017-10-26] MEDS ORDERED: AcetaZOLAMIDE INJ 500 MG IVPush ONE (11:00)
[2017-10-26 12:06] LABS: FREE T4 (FREE THYROXINE) 1.18 ng/dL (0.76-1.46); THYROID STIMULATING HORMONE 5.68 mIU/L (0.358-3.740)
[2017-10-26 14:12] VITALS: BP 149/86
[2017-10-26 14:14] VITALS: BP 153/82
[2017-10-26] MEDS ORDERED: FUROSEMIDE 40 MG/4 ML IV SCH (17:00)
[2017-10-26 19:06] VITALS: BP 98/55
[2017-10-26] MEDS: ATORVASTATIN 20 MG TABLET PO SCH (20:51)
[2017-10-27 02:34] VITALS: BP 103/63
[2017-10-27 05:42] LABS: BASOPHILS # (AUTO) 0.01 x10^3/uL (0-0.1); BASOPHILS % (AUTO) 0 % (0-1); EOSINOPHILS # (AUTO) 0.12 x10^3/uL (0-0.4); EOSINOPHILS % (AUTO) 2 % (1-7); LYMPHOCYTES # (AUTO) 0.79 x10^3/uL (1-3.4); LYMPHOCYTES % (AUTO) 14 % (22-44); MD NO; MEAN CORPUSCULAR HEMOGLOBIN 31.5 pg (27.0-34.8); MEAN CORPUSCULAR HGB CONC 32.5 g/dL (32.4-35.8); MEAN CORPUSCULAR VOLUME 96.8 fL (80-100); MEAN PLATELET VOLUME 7.5 fL (7.4-10.4); MONOCYTES # (AUTO) 0.37 x10^3/uL (0.2-0.8); MONOCYTES % (AUTO) 7 % (2-9); NEUTROPHILS # (AUTO) 4.31 x10^3/uL (1.8-6.8); NEUTROPHILS % (AUTO) 77 % (42-75); PLATELET COUNT 175 x10^3/uL (130-400); RED BLOOD COUNT 4.56 x10^6/uL (3.82-5.3); RED CELL DISTRIBUTION WIDTH 16.3 % (9.6-15.2)
[2017-10-27 05:43] LABS: ALBUMIN 2.4 g/dL (3.4-5.0); ANION GAP 5 mmol/L (5-15); CALCIUM 7.8 mg/dL (8.5-10.1); CHLORIDE 100 mmol/L (98-107)
[2017-10-27 05:57] LABS: ALANINE AMINOTRANSFERASE 14 U/L (12-78); ALKALINE PHOSPHATASE 46 U/L (45-117); BILIRUBIN,TOTAL 0.6 mg/dL (0.2-1.0); CREATININE 1.61 mg/dL (0.55-1.02); TOTAL PROTEIN 4.7 g/dL (6.4-8.2)
[2017-10-27] MEDS: LEVOTHYROXINE 125 MCG TABLET PO SCH (06:12)
[2017-10-27] MEDS: CARVEDILOL 3.125 MG TABLET PO SCH ×2 (06:12→18:00)
[2017-10-27] MEDS: INSULIN LISPRO 100 UNITS/ML, PEN SQ-INSULIN SCH ×4 (07:00→21:48)
[2017-10-27] MEDS ORDERED: METOLAZONE 5 MG TABLET PO SCH (08:00)
[2017-10-27 08:06] VITALS: BP 99/60
[2017-10-27] MEDS: SENNA/DOCUSATE TABLET PO SCH (09:00)
[2017-10-27] MEDS ORDERED: FUROSEMIDE 40 MG TABLET PO SCH (09:00)
[2017-10-27] MEDS: POTASSIUM CHLORIDE 20 MEQ TAB.ER.PRT PO SCH ×2 (09:55→18:00)
[2017-10-27] MEDS: FUROSEMIDE 20 MG/2 ML IV SCH ×2 (09:55→18:00)
[2017-10-27] MEDS: SODIUM CHLORIDE FLUSH 10ML SYR IVF SCH ×2 (09:56→21:00)
[2017-10-27] MEDS: ERGOCALCIFEROL 50,000 UNIT CAPSULE PO SCH (09:56)
[2017-10-27] MEDS: FERROUS SULFATE 325 MG TABLET PO SCH ×2 (09:57→21:48)
[2017-10-27] MEDS: INSULIN GLARGINE 100 UNITS/ML, PEN SQ-INSULIN SCH (09:57)
[2017-10-27] MEDS: RIVAROXABAN 15 MG TABLET PO SCH (09:58)
[2017-10-27] MEDS: MULTIVITAMINS/MINERALS TABLET PO SCH (09:58)
[2017-10-27] MEDS: GABAPENTIN 300 MG CAPSULE PO SCH ×2 (09:58→21:48)
[2017-10-27] MEDS: PANTOPROZOLE 40MG TABLET PO SCH (09:58)
[2017-10-27] MEDS ORDERED: AcetaZOLAMIDE INJ 500 MG IVPush ONE (13:00)
[2017-10-27 13:48] VITALS: BP 91/51
[2017-10-27 14:24] VITALS: BP 102/54
[2017-10-27 16:35] VITALS: BP 108/68
[2017-10-27 19:32] VITALS: BP_SYST 88; BP_SYST 94; BP_DIAS 50; BP_DIAS 58
[2017-10-27] MEDS: ATORVASTATIN 20 MG TABLET PO SCH (21:48)
[2017-10-28 00:59] VITALS: BP 110/74
[2017-10-28 05:25] LABS: BASOPHILS # (AUTO) 0.04 x10^3/uL (0-0.1); BASOPHILS % (AUTO) 1 % (0-1); EOSINOPHILS # (AUTO) 0.12 x10^3/uL (0-0.4); EOSINOPHILS % (AUTO) 2 % (1-7); LYMPHOCYTES # (AUTO) 1.05 x10^3/uL (1-3.4); LYMPHOCYTES % (AUTO) 18 % (22-44); MD NO; MEAN CORPUSCULAR HEMOGLOBIN 31.5 pg (27.0-34.8); MEAN CORPUSCULAR HGB CONC 32.2 g/dL (32.4-35.8); MEAN CORPUSCULAR VOLUME 97.6 fL (80-100); MEAN PLATELET VOLUME 7.7 fL (7.4-10.4); MONOCYTES # (AUTO) 0.44 x10^3/uL (0.2-0.8); MONOCYTES % (AUTO) 7 % (2-9); NEUTROPHILS # (AUTO) 4.28 x10^3/uL (1.8-6.8); NEUTROPHILS % (AUTO) 72 % (42-75); PLATELET COUNT 183 x10^3/uL (130-400); RED BLOOD COUNT 4.64 x10^6/uL (3.82-5.3); RED CELL DISTRIBUTION WIDTH 16.4 % (9.6-15.2)
[2017-10-28] MEDS: LEVOTHYROXINE 125 MCG TABLET PO SCH (05:34)
[2017-10-28] MEDS: CARVEDILOL 3.125 MG TABLET PO SCH ×2 (05:34→17:18)
[2017-10-28 05:36] LABS: ALANINE AMINOTRANSFERASE 15 U/L (12-78); ALBUMIN 2.1 g/dL (3.4-5.0); ANION GAP 5 mmol/L (5-15); CALCIUM 7.5 mg/dL (8.5-10.1); CHLORIDE 103 mmol/L (98-107); CREATININE 1.39 mg/dL (0.55-1.02)
[2017-10-28 05:38] LABS: ALKALINE PHOSPHATASE 51 U/L (45-117); BILIRUBIN,TOTAL 0.5 mg/dL (0.2-1.0); TOTAL PROTEIN 4.3 g/dL (6.4-8.2)
[2017-10-28 06:23] LABS: CREATININE,URINE RANDOM 47.5 mg/dL
[2017-10-28] MEDS: INSULIN LISPRO 100 UNITS/ML, PEN SQ-INSULIN SCH ×4 (07:00→21:51)
[2017-10-28 07:36] VITALS: BP 99/60
[2017-10-28] MEDS: SENNA/DOCUSATE TABLET PO SCH (08:33)
[2017-10-28] MEDS: FERROUS SULFATE 325 MG TABLET PO SCH ×2 (08:42→21:51)
[2017-10-28] MEDS: RIVAROXABAN 15 MG TABLET PO SCH (08:42)
[2017-10-28] MEDS: GABAPENTIN 300 MG CAPSULE PO SCH ×2 (08:42→21:52)
[2017-10-28] MEDS: POTASSIUM CHLORIDE 20 MEQ TAB.ER.PRT PO SCH ×2 (08:42→17:18)
[2017-10-28] MEDS: MULTIVITAMINS/MINERALS TABLET PO SCH (08:42)
[2017-10-28] MEDS: INSULIN GLARGINE 100 UNITS/ML, PEN SQ-INSULIN SCH (08:42)
[2017-10-28] MEDS: SODIUM CHLORIDE FLUSH 10ML SYR IVF SCH ×2 (08:43→21:52)
[2017-10-28] MEDS: FUROSEMIDE 20 MG/2 ML IV SCH ×2 (08:43→17:19)
[2017-10-28] MEDS: PANTOPROZOLE 40MG TABLET PO SCH (08:45)
[2017-10-28 08:51] VITALS: BP 100/65
[2017-10-28 12:29] VITALS: BP 118/60
[2017-10-28 17:19] VITALS: BP 110/64
[2017-10-28 21:35] VITALS: BP 98/61
[2017-10-28] MEDS: ATORVASTATIN 20 MG TABLET PO SCH (21:51)
[2017-10-29] VITALS (14 sets, daily range): BP systolic 94–116; BP diastolic 51–75
[2017-10-29] MEDS: LEVOTHYROXINE 125 MCG TABLET PO SCH (05:43)
[2017-10-29] MEDS: CARVEDILOL 3.125 MG TABLET PO SCH ×2 (05:43→17:31)
[2017-10-29] MEDS: INSULIN LISPRO 100 UNITS/ML, PEN SQ-INSULIN SCH ×4 (07:11→21:00)
[2017-10-29 08:47] LABS: ALBUMIN 2.2 g/dL (3.4-5.0); ANION GAP 5 mmol/L (5-15); CALCIUM 7.9 mg/dL (8.5-10.1); CHLORIDE 103 mmol/L (98-107); CREATININE 1.46 mg/dL (0.55-1.02)
[2017-10-29] MEDS: INSULIN GLARGINE 100 UNITS/ML, PEN SQ-INSULIN SCH (09:36)
[2017-10-29] MEDS: POTASSIUM CHLORIDE 20 MEQ TAB.ER.PRT PO SCH ×2 (09:36→17:31)
[2017-10-29] MEDS: MULTIVITAMINS/MINERALS TABLET PO SCH (09:36)
[2017-10-29] MEDS: RIVAROXABAN 15 MG TABLET PO SCH (09:36)
[2017-10-29] MEDS: FERROUS SULFATE 325 MG TABLET PO SCH ×2 (09:37→22:59)
[2017-10-29] MEDS: SENNA/DOCUSATE TABLET PO SCH (09:37)
[2017-10-29] MEDS: GABAPENTIN 300 MG CAPSULE PO SCH ×2 (09:37→22:59)
[2017-10-29] MEDS: PANTOPROZOLE 40MG TABLET PO SCH (09:37)
[2017-10-29] MEDS: FUROSEMIDE 100 MG/10 ML IV SCH ×2 (10:39→17:31)
[2017-10-29] MEDS: SODIUM CHLORIDE FLUSH 10ML SYR IVF SCH ×2 (10:40→22:20)
[2017-10-29] MEDS ORDERED: FUROSEMIDE 20 MG/2 ML IV SCH (17:00)
[2017-10-29] MEDS: ATORVASTATIN 20 MG TABLET PO SCH (22:59)
[2017-10-30] VITALS (8 sets, daily range): BP systolic 93–107; BP diastolic 55–66
[2017-10-30 05:58] LABS: CHLORIDE 102 mmol/L (98-107)
[2017-10-30 06:08] LABS: ALANINE AMINOTRANSFERASE 23 U/L (12-78); ALBUMIN 2.1 g/dL (3.4-5.0); ALKALINE PHOSPHATASE 71 U/L (45-117); ANION GAP 7 mmol/L (5-15); BILIRUBIN,TOTAL 1.2 mg/dL (0.2-1.0); CALCIUM 7.9 mg/dL (8.5-10.1); TOTAL PROTEIN 4.7 g/dL (6.4-8.2)
[2017-10-30] MEDS: LEVOTHYROXINE 125 MCG TABLET PO SCH (06:22)
[2017-10-30] MEDS: CARVEDILOL 3.125 MG TABLET PO SCH ×2 (06:23→17:44)
[2017-10-30] MEDS: INSULIN LISPRO 100 UNITS/ML, PEN SQ-INSULIN SCH ×4 (07:00→20:43)
[2017-10-30] MEDS: FERROUS SULFATE 325 MG TABLET PO SCH ×2 (08:49→21:57)
[2017-10-30] MEDS: GABAPENTIN 300 MG CAPSULE PO SCH ×2 (08:49→21:56)
[2017-10-30] MEDS: MULTIVITAMINS/MINERALS TABLET PO SCH (08:49)
[2017-10-30] MEDS: FUROSEMIDE 100 MG/10 ML IV SCH ×2 (08:49→17:19)
[2017-10-30] MEDS: POTASSIUM CHLORIDE 20 MEQ TAB.ER.PRT PO SCH ×2 (08:50→17:19)
[2017-10-30] MEDS: PANTOPROZOLE 40MG TABLET PO SCH (08:50)
[2017-10-30] MEDS: RIVAROXABAN 15 MG TABLET PO SCH (08:50)
[2017-10-30] MEDS: SENNA/DOCUSATE TABLET PO SCH (08:50)
[2017-10-30] MEDS: SODIUM CHLORIDE FLUSH 10ML SYR IVF SCH ×2 (08:51→20:37)
[2017-10-30] MEDS: METOLAZONE 2.5 MG TABLET PO SCH (11:08)
[2017-10-30] MEDS: INSULIN GLARGINE 100 UNITS/ML, PEN SQ-INSULIN SCH (11:09)
[2017-10-30] MEDS: ACETAMINOPHEN 325 MG TABLET PO PRN (20:37)
[2017-10-30] MEDS: ATORVASTATIN 20 MG TABLET PO SCH (21:57)
[2017-10-31 02:38] VITALS: BP 95/65
[2017-10-31 06:08] LABS: ALBUMIN 1.9 g/dL (3.4-5.0); ANION GAP 5 mmol/L (5-15); CALCIUM 7.9 mg/dL (8.5-10.1); CHLORIDE 102 mmol/L (98-107)
[2017-10-31 06:10] LABS: ALANINE AMINOTRANSFERASE 18 U/L (12-78); ALKALINE PHOSPHATASE 67 U/L (45-117); BILIRUBIN,TOTAL 1.1 mg/dL (0.2-1.0); CREATININE 1.48 mg/dL (0.55-1.02); TOTAL PROTEIN 4.3 g/dL (6.4-8.2)
[2017-10-31] MEDS: LEVOTHYROXINE 125 MCG TABLET PO SCH (06:23)
[2017-10-31] MEDS: CARVEDILOL 3.125 MG TABLET PO SCH ×2 (06:24→17:40)
[2017-10-31 06:35] VITALS: BP 100/67
[2017-10-31] MEDS: INSULIN LISPRO 100 UNITS/ML, PEN SQ-INSULIN SCH ×4 (07:00→20:23)
[2017-10-31] MEDS: FUROSEMIDE 100 MG/10 ML IV SCH (07:30)
[2017-10-31] MEDS: METOLAZONE 2.5 MG TABLET PO SCH ×2 (07:30→10:06)
[2017-10-31] MEDS: POTASSIUM CHLORIDE 20 MEQ TAB.ER.PRT PO SCH ×3 (08:00→17:39)
[2017-10-31] MEDS: FERROUS SULFATE 325 MG TABLET PO SCH ×3 (09:00→20:23)
[2017-10-31] MEDS ORDERED: ERGOCALCIFEROL 50,000 UNIT CAPSULE PO SCH (09:00)
[2017-10-31] MEDS: INSULIN GLARGINE 100 UNITS/ML, PEN SQ-INSULIN SCH (09:00)
[2017-10-31] MEDS: SENNA/DOCUSATE TABLET PO SCH (09:00)
[2017-10-31] MEDS ORDERED: FUROSEMIDE 100 MG/10 ML IV ONE (10:00)
[2017-10-31] MEDS: PANTOPROZOLE 40MG TABLET PO SCH (10:04)
[2017-10-31] MEDS: GABAPENTIN 300 MG CAPSULE PO SCH ×2 (10:06→20:23)
[2017-10-31] MEDS: RIVAROXABAN 15 MG TABLET PO SCH (10:06)
[2017-10-31] MEDS: MULTIVITAMINS/MINERALS TABLET PO SCH (10:07)
[2017-10-31] MEDS: SODIUM CHLORIDE FLUSH 10ML SYR IVF SCH ×2 (10:07→20:23)
[2017-10-31] MEDS: ACETAMINOPHEN 325 MG TABLET PO PRN ×2 (10:28→20:23)
[2017-10-31 12:24] VITALS: BP 101/66
[2017-10-31] MEDS: FUROSEMIDE 40 MG/4 ML IV SCH (17:40)
[2017-10-31 19:47] VITALS: BP 100/62
[2017-10-31] MEDS: ATORVASTATIN 20 MG TABLET PO SCH (20:23)
[2017-11-01 02:06] VITALS: BP 103/68
[2017-11-01 05:25] LABS: ANION GAP 4 mmol/L (5-15); CALCIUM 7.9 mg/dL (8.5-10.1); CHLORIDE 100 mmol/L (98-107)
[2017-11-01 05:26] LABS: CREATININE 1.74 mg/dL (0.55-1.02)
[2017-11-01 05:36] VITALS: BP 94/63
[2017-11-01] MEDS: LEVOTHYROXINE 125 MCG TABLET PO SCH (05:43)
[2017-11-01 07:04] VITALS: BP 108/77
[2017-11-01] MEDS: CARVEDILOL 3.125 MG TABLET PO SCH ×2 (08:00→16:54)
[2017-11-01] MEDS: INSULIN LISPRO 100 UNITS/ML, PEN SQ-INSULIN SCH ×4 (08:34→20:50)
[2017-11-01] MEDS: INSULIN GLARGINE 100 UNITS/ML, PEN SQ-INSULIN SCH (08:35)
[2017-11-01] MEDS: FUROSEMIDE 40 MG/4 ML IV SCH ×2 (08:35→16:54)
[2017-11-01] MEDS: SENNA/DOCUSATE TABLET PO SCH (08:36)
[2017-11-01] MEDS: PANTOPROZOLE 40MG TABLET PO SCH (08:36)
[2017-11-01] MEDS: GABAPENTIN 300 MG CAPSULE PO SCH (08:36)
[2017-11-01] MEDS: POTASSIUM CHLORIDE 20 MEQ TAB.ER.PRT PO SCH ×2 (08:36→16:53)
[2017-11-01] MEDS: METOLAZONE 2.5 MG TABLET PO SCH (08:36)
[2017-11-01] MEDS: RIVAROXABAN 15 MG TABLET PO SCH (08:36)
[2017-11-01] MEDS: MULTIVITAMINS/MINERALS TABLET PO SCH (08:36)
[2017-11-01] MEDS: FERROUS SULFATE 325 MG TABLET PO SCH ×2 (08:37→20:49)
[2017-11-01] MEDS: SODIUM CHLORIDE FLUSH 10ML SYR IVF SCH ×2 (08:37→20:49)
[2017-11-01 14:00] VITALS: BP 103/66
[2017-11-01 18:28] VITALS: BP 107/70
[2017-11-01] MEDS: ATORVASTATIN 20 MG TABLET PO SCH (20:49)
[2017-11-02 02:00] VITALS: BP 99/57
[2017-11-02] MEDS: LEVOTHYROXINE 125 MCG TABLET PO SCH (06:57)
[2017-11-02 07:10] VITALS: BP 113/69
[2017-11-02] MEDS: PANTOPROZOLE 40MG TABLET PO SCH (08:26)
[2017-11-02] MEDS: MULTIVITAMINS/MINERALS TABLET PO SCH (08:26)
[2017-11-02] MEDS: METOLAZONE 5 MG TABLET PO SCH (08:26)
[2017-11-02] MEDS: POTASSIUM CHLORIDE 20 MEQ TAB.ER.PRT PO SCH ×2 (08:26→17:12)
[2017-11-02] MEDS: FERROUS SULFATE 325 MG TABLET PO SCH ×2 (08:27→20:55)
[2017-11-02] MEDS: CARVEDILOL 3.125 MG TABLET PO SCH ×2 (08:27→17:12)
[2017-11-02] MEDS: RIVAROXABAN 15 MG TABLET PO SCH (08:27)
[2017-11-02] MEDS: SODIUM CHLORIDE FLUSH 10ML SYR IVF SCH ×2 (08:28→20:56)
[2017-11-02] MEDS: GABAPENTIN 300 MG CAPSULE PO SCH (08:28)
[2017-11-02] MEDS: INSULIN LISPRO 100 UNITS/ML, PEN SQ-INSULIN SCH ×4 (08:28→21:15)
[2017-11-02] MEDS: FUROSEMIDE 40 MG/4 ML IV SCH ×2 (09:02→17:12)
[2017-11-02] MEDS: SENNA/DOCUSATE TABLET PO SCH (09:06)
[2017-11-02] MEDS: INSULIN GLARGINE 100 UNITS/ML, PEN SQ-INSULIN SCH (09:06)
[2017-11-02 14:00] VITALS: BP 106/55
[2017-11-02 17:18] VITALS: BP 111/73
[2017-11-02 20:00] VITALS: BP 109/72
[2017-11-02] MEDS: ATORVASTATIN 20 MG TABLET PO SCH (20:55)
[2017-11-03 02:00] VITALS: BP 99/62
[2017-11-03 05:24] LABS: ALBUMIN 1.8 g/dL (3.4-5.0); ANION GAP 0 mmol/L (5-15); CALCIUM 7.8 mg/dL (8.5-10.1); CHLORIDE 98 mmol/L (98-107); CREATININE 1.22 mg/dL (0.55-1.02)
[2017-11-03 06:29] VITALS: BP 101/66
[2017-11-03] MEDS: LEVOTHYROXINE 125 MCG TABLET PO SCH (06:31)
[2017-11-03] MEDS: CARVEDILOL 3.125 MG TABLET PO SCH ×2 (06:31→17:38)
[2017-11-03] MEDS: INSULIN LISPRO 100 UNITS/ML, PEN SQ-INSULIN SCH ×4 (07:00→20:58)
[2017-11-03] MEDS: FERROUS SULFATE 325 MG TABLET PO SCH ×2 (08:38→21:00)
[2017-11-03] MEDS: RIVAROXABAN 15 MG TABLET PO SCH (08:38)
[2017-11-03] MEDS: GABAPENTIN 300 MG CAPSULE PO SCH (08:38)
[2017-11-03] MEDS: FUROSEMIDE 40 MG/4 ML IV SCH (08:38)
[2017-11-03] MEDS: METOLAZONE 5 MG TABLET PO SCH (08:38)
[2017-11-03] MEDS: POTASSIUM CHLORIDE 20 MEQ TAB.ER.PRT PO SCH ×3 (08:38→17:38)
[2017-11-03] MEDS: MULTIVITAMINS/MINERALS TABLET PO SCH (08:38)
[2017-11-03] MEDS: PANTOPROZOLE 40MG TABLET PO SCH (08:38)
[2017-11-03] MEDS: SENNA/DOCUSATE TABLET PO SCH (08:39)
[2017-11-03] MEDS: ERGOCALCIFEROL 50,000 UNIT CAPSULE PO SCH (08:39)
[2017-11-03] MEDS: AcetaZOLAMIDE INJ 500 MG IVPush SCH (08:40)
[2017-11-03] MEDS: SODIUM CHLORIDE FLUSH 10ML SYR IVF SCH ×2 (08:41→21:00)
[2017-11-03] MEDS: INSULIN GLARGINE 100 UNITS/ML, PEN SQ-INSULIN SCH (08:42)
[2017-11-03 08:50] VITALS: BP 105/66
[2017-11-03] MEDS ORDERED: TRAM50TA2 PO (11:23)
[2017-11-03] MEDS ORDERED: POLY17PO5 PO (11:23)
[2017-11-03] MEDS ORDERED: INSU100V8 SQ (11:23)
[2017-11-03] MEDS ORDERED: POTA20TA6 PO (11:23)
[2017-11-03] MEDS ORDERED: FURO80TA3 PO (11:23)
[2017-11-03 13:20] VITALS: BP 97/66
[2017-11-03] MEDS: FUROSEMIDE 80 MG TABLET PO SCH (17:38)
[2017-11-03 19:00] VITALS: BP 96/63
[2017-11-03] MEDS: ATORVASTATIN 20 MG TABLET PO SCH (21:00)
[2017-11-03 23:57] VITALS: BP 100/65
[2017-11-04 01:29] VITALS: BP 96/63
[2017-11-04 04:53] LABS: CALCIUM 7.7 mg/dL (8.5-10.1); CHLORIDE 98 mmol/L (98-107)
[2017-11-04 05:02] LABS: ANION GAP 2 mmol/L (5-15); CREATININE 1.11 mg/dL (0.55-1.02)
[2017-11-04 05:49] VITALS: BP 103/55
[2017-11-04] MEDS: LEVOTHYROXINE 125 MCG TABLET PO SCH (05:52)
[2017-11-04] MEDS: CARVEDILOL 3.125 MG TABLET PO SCH ×2 (05:52→16:30)
[2017-11-04 07:40] VITALS: BP 100/61
[2017-11-04] MEDS: INSULIN LISPRO 100 UNITS/ML, PEN SQ-INSULIN SCH ×4 (09:28→20:11)
[2017-11-04] MEDS: SODIUM CHLORIDE FLUSH 10ML SYR IVF SCH ×2 (09:30→20:12)
[2017-11-04] MEDS: SENNA/DOCUSATE TABLET PO SCH (09:31)
[2017-11-04] MEDS: POTASSIUM CHLORIDE 20 MEQ TAB.ER.PRT PO SCH ×3 (09:33→16:30)
[2017-11-04] MEDS: MULTIVITAMINS/MINERALS TABLET PO SCH (09:34)
[2017-11-04] MEDS: FERROUS SULFATE 325 MG TABLET PO SCH ×2 (09:34→20:11)
[2017-11-04] MEDS: GABAPENTIN 300 MG CAPSULE PO SCH (09:34)
[2017-11-04] MEDS: FUROSEMIDE 80 MG TABLET PO SCH ×2 (09:34→16:30)
[2017-11-04] MEDS: METOLAZONE 5 MG TABLET PO SCH (09:35)
[2017-11-04] MEDS: RIVAROXABAN 15 MG TABLET PO SCH (09:35)
[2017-11-04] MEDS: PANTOPROZOLE 40MG TABLET PO SCH (09:35)
[2017-11-04] MEDS: AcetaZOLAMIDE INJ 500 MG IVPush SCH (09:36)
[2017-11-04] MEDS: INSULIN GLARGINE 100 UNITS/ML, PEN SQ-INSULIN SCH (09:39)
[2017-11-04] MEDS ORDERED: POTASSIUM CHLORIDE 20 MEQ TAB.ER.PRT PO SCH (12:00)
[2017-11-04 15:34] VITALS: BP 103/63
[2017-11-04] MEDS: ATORVASTATIN 20 MG TABLET PO SCH (20:11)
[2017-11-04 21:40] VITALS: BP 94/55
[2017-11-05] VITALS (7 sets, daily range): BP systolic 90–103; BP diastolic 57–67
[2017-11-05 05:34] LABS: ALANINE AMINOTRANSFERASE 15 U/L (12-78); ALBUMIN 1.9 g/dL (3.4-5.0); ANION GAP 3 mmol/L (5-15); CALCIUM 7.8 mg/dL (8.5-10.1); CHLORIDE 98 mmol/L (98-107); CREATININE 1.25 mg/dL (0.55-1.02)
[2017-11-05 05:36] LABS: ALKALINE PHOSPHATASE 70 U/L (45-117); TOTAL PROTEIN 4.7 g/dL (6.4-8.2)
[2017-11-05] MEDS: LEVOTHYROXINE 125 MCG TABLET PO SCH (05:55)
[2017-11-05] MEDS: CARVEDILOL 3.125 MG TABLET PO SCH ×2 (05:55→16:11)
[2017-11-05] MEDS: AcetaZOLAMIDE INJ 500 MG IVPush SCH (08:15)
[2017-11-05] MEDS: INSULIN GLARGINE 100 UNITS/ML, PEN SQ-INSULIN SCH (08:15)
[2017-11-05] MEDS: INSULIN LISPRO 100 UNITS/ML, PEN SQ-INSULIN SCH ×4 (08:15→21:09)
[2017-11-05] MEDS: POTASSIUM CHLORIDE 20 MEQ TAB.ER.PRT PO SCH ×3 (08:15→16:10)
[2017-11-05] MEDS: METOLAZONE 5 MG TABLET PO SCH (08:16)
[2017-11-05] MEDS: RIVAROXABAN 15 MG TABLET PO SCH (08:16)
[2017-11-05] MEDS: GABAPENTIN 300 MG CAPSULE PO SCH (08:16)
[2017-11-05] MEDS: FERROUS SULFATE 325 MG TABLET PO SCH ×2 (08:16→21:09)
[2017-11-05] MEDS: SENNA/DOCUSATE TABLET PO SCH (08:16)
[2017-11-05] MEDS: MULTIVITAMINS/MINERALS TABLET PO SCH (08:16)
[2017-11-05] MEDS: PANTOPROZOLE 40MG TABLET PO SCH (08:16)
[2017-11-05] MEDS: FUROSEMIDE 80 MG TABLET PO SCH ×2 (08:16→16:10)
[2017-11-05] MEDS: SODIUM CHLORIDE FLUSH 10ML SYR IVF SCH ×2 (08:17→21:00)
[2017-11-05] MEDS: ATORVASTATIN 20 MG TABLET PO SCH (21:09)
[2017-11-06 02:08] VITALS: BP 95/58
[2017-11-06] MEDS: LEVOTHYROXINE 125 MCG TABLET PO SCH (06:18)
[2017-11-06] MEDS: CARVEDILOL 3.125 MG TABLET PO SCH (06:18)
[2017-11-06 06:42] VITALS: BP 100/62
[2017-11-06] MEDS: INSULIN LISPRO 100 UNITS/ML, PEN SQ-INSULIN SCH ×2 (07:00→11:22)
[2017-11-06] MEDS: POTASSIUM CHLORIDE 20 MEQ TAB.ER.PRT PO SCH ×2 (08:02→11:22)
[2017-11-06] MEDS: MULTIVITAMINS/MINERALS TABLET PO SCH (08:02)
[2017-11-06] MEDS: SENNA/DOCUSATE TABLET PO SCH (08:03)
[2017-11-06] MEDS: METOLAZONE 5 MG TABLET PO SCH (08:03)
[2017-11-06] MEDS: RIVAROXABAN 15 MG TABLET PO SCH (08:03)
[2017-11-06] MEDS: INSULIN GLARGINE 100 UNITS/ML, PEN SQ-INSULIN SCH (08:03)
[2017-11-06] MEDS: GABAPENTIN 300 MG CAPSULE PO SCH (08:03)
[2017-11-06] MEDS: FUROSEMIDE 80 MG TABLET PO SCH (08:03)
[2017-11-06] MEDS: PANTOPROZOLE 40MG TABLET PO SCH (08:03)
[2017-11-06] MEDS: FERROUS SULFATE 325 MG TABLET PO SCH (08:03)
[2017-11-06] MEDS: SODIUM CHLORIDE FLUSH 10ML SYR IVF SCH (08:04)
[2017-11-06] MEDS ORDERED: ACET500C PO (08:44)
[2017-11-06] MEDS ORDERED: ERGO500017 PO (09:18)
[2017-11-06 12:29] VITALS: BP 100/56
== END 2017-11-06 14:45 | disposition home or self-care (01) | DRG 291 ==
LOC: ED 21:17 → EDIP 21:21 → 4EST 22:05 → DCLOUNGE 11-06 14:20
PROVIDERS: ADMIT Internal Medicine; ATTEND Internal Medicine
DX: I13.0 Hypertensive heart and chronic kidney disease with heart failure and stage 1 through stage 4 chronic kidney disease, or unspecified chronic kidney disease (principal); E43 Unspecified severe protein-calorie malnutrition; I50.43 Acute on chronic combined systolic (congestive) and diastolic (congestive) heart failure; D68.69 Other thrombophilia; I48.92 Unspecified atrial flutter; E87.3 Alkalosis; J98.11 Atelectasis; E11.21 Type 2 diabetes mellitus with diabetic nephropathy; I25.10 Atherosclerotic heart disease of native coronary artery without angina pectoris; K44.9 Diaphragmatic hernia without obstruction or gangrene; E11.40 Type 2 diabetes mellitus with diabetic neuropathy, unspecified; E11.22 Type 2 diabetes mellitus with diabetic chronic kidney disease; E03.9 Hypothyroidism, unspecified; E11.51 Type 2 diabetes mellitus with diabetic peripheral angiopathy without gangrene; E11.610 Type 2 diabetes mellitus with diabetic neuropathic arthropathy; E11.649 Type 2 diabetes mellitus with hypoglycemia without coma; E55.9 Vitamin D deficiency, unspecified; E66.9 Obesity, unspecified; E78.5 Hyperlipidemia, unspecified; F41.9 Anxiety disorder, unspecified; I25.5 Ischemic cardiomyopathy; I27.29 Other secondary pulmonary hypertension; I27.81 Cor pulmonale (chronic); I48.2 Chronic atrial fibrillation; K74.60 Unspecified cirrhosis of liver; M06.9 Rheumatoid arthritis, unspecified; M19.90 Unspecified osteoarthritis, unspecified site; I95.9 Hypotension, unspecified; N18.3 Chronic kidney disease, stage 3 (moderate); E87.6 Hypokalemia; S51.811A Laceration without foreign body of right forearm, initial encounter; Y92.238 Other place in hospital as the place of occurrence of the external cause; Z79.4 Long term (current) use of insulin; Z80.3 Family history of malignant neoplasm of breast; Z82.3 Family history of stroke; Z82.49 Family history of ischemic heart disease and other diseases of the circulatory system; Z83.3 Family history of diabetes mellitus; Z87.01 Personal history of pneumonia (recurrent); Z87.891 Personal history of nicotine dependence; Z95.1 Presence of aortocoronary bypass graft; Z91.81 History of falling; Z95.810 Presence of automatic (implantable) cardiac defibrillator; Z90.49 Acquired absence of other specified parts of digestive tract; Y93.89 Activity, other specified; Y99.8 Other external cause status; Z68.33 Body mass index [BMI] 33.0-33.9, adult
CPT/HCPCS: 36415; 70450; 70490; 71046; 73523; 76770; 78582; 80048; 80053; 81003; 82040; 82043; 82306; 82570; 82962; 83036; 83735; 83880; 84100; 84156; 84439; 84443; 84484; 84550; 85025; 93005; 93306; 93970; 96374; J1940; J2405; P9047; A9540; A9558; C9898; J1120; J1815